=== PATIENT | male | born 1980 | race Two or more races ===

== ENCOUNTER 2021-08-07 14:44 | Emergency (ER) | payer OTHER ==
[~2021-08-07] VITALS: Ht 170.2 cm; Wt 89.8 kg
--- NOTE | 2021-08-07 15:40 | NUR ---
DR TOSCANO AT BEDSIDE
[2021-08-07] MEDS ORDERED: IBUP-1957 PO ×2 (16:11→16:45)
--- NOTE | 2021-08-07 16:52 | NUR ---
Patient discharged to home in stable condition. Written and verbal after care instructions given. Patient verbalizes understanding of instruction.
[2021-08-07 16:53] VITALS: BP 132/72
== END 2021-08-07 16:53 | disposition home or self-care (01) ==
LOC: ER 14:47
DX: S39.012A Strain of muscle, fascia and tendon of lower back, initial encounter (principal); S00.93XA Contusion of unspecified part of head, initial encounter; V49.49XA Driver injured in collision with other motor vehicles in traffic accident, initial encounter; Y93.89 Activity, other specified; Y92.413 State road as the place of occurrence of the external cause; Y99.8 Other external cause status
CPT/HCPCS: 70450-TC; 72131-TC